=== PATIENT | male | born 1970 | race Caucasian/White ===

== ENCOUNTER 2016-07-01 14:17 | Emergency (ER) | payer OTHER ==
[~2016-07-01] VITALS: Ht 185.4 cm; Wt 76.4 kg
[~2016-07-01 14:17] MED LIST: ANTIBIOTIC; CEPHALEXIN500 M1 PO; DAZIDOX10 MG PO; NORCO 325 MG-51 TAB PO; PERCOCET 325 MG1 TAB PO; PREDNISONE10 MG PO; SEPTRA DS 8001 TAB PO
[2016-07-01 14:18] VITALS: TEMP 97.2
[2016-07-01 15:30] LABS: BASO # 0.1 (0.0-0.2); BASO % 0.7 % (0.0-2.0); EOS # 0.1 (0.0-0.7); GRAN # 4.4 (1.4-6.5); GRAN % 61.6 % (42.2-75.2); HEMATOCRIT 44.1 % (42.0-52.0); HEMOGLOBIN 15.1 g/dl (13.5-18.0); LYMPH # 2.2 (1.2-3.4); LYMPH % 30.3 % (20.0-51.0); MEAN CELL VOLUME 98 fl (80.0-100.0); MEAN CORPUSCULAR HEMOGLOBIN 34 pg (27.0-31.0); MEAN CORPUSCULAR HGB CONC 34 g/dl (33.0-37.0); MEAN PLATELET VOLUME 10.9 fl (7.4-10.4); MONO # 0.4 (0.1-0.6); MONO % 6.1 % (1.7-9.3); PLATELET COUNT 158 K/mm3 (130-400); RED BLOOD COUNT 4.49 M/mm3 (4.20-5.60); REDCELL DISTRIBUTION WIDTH-CV 12.7 % (11.5-14.5); WHITE BLOOD COUNT 7.2 K/mm3 (4.8-10.8)
[2016-07-01 15:52] LABS: ADJUSTED CALCIUM 9.1 mg/dL (8.4-10.2); ALANINE AMINOTRANSFERASE 37 U/L (21-72); ALBUMIN 4.8 gm/dL (3.5-5.0); ALKALINE PHOSPHATASE 97 U/L (50-136); ANION GAP 14 mmol/L (7-16); BILIRUBIN,TOTAL 0.9 mg/dL (0.0-1.0); BLOOD UREA NITROGEN 18 mg/dL (9-20); C-REACTIVE PROTEIN < 0.5 mg/dL (0.0-0.9); CALCIUM 9.7 mg/dL (8.4-10.2); CARBON DIOXIDE 19 mmol/L (22-30); CHLORIDE 108 mmol/L (98-107); CREATININE, serum 0.85 mg/dL (0.66-1.25); GLUCOSE 91 mg/dL (74-106); LIPASE 181 U/L (23-300); POTASSIUM 3.7 mmol/L (3.4-5.0); SODIUM 141 mmol/L (137-145); TOTAL PROTEIN 8.5 gm/dL (6.4-8.2)
[2016-07-01 16:05] LABS: TROPONIN-I < 0.012 ng/mL (0.000-0.034)
[2016-07-01 16:08] LABS: PH 5 (5-8); SQUAMOUS EPITHELIAL 0-2 /hpf; URINE APPEARANCE Clear; URINE BACTERIA None Seen /hpf; URINE BILIRUBIN Negative (NEGATIVE); URINE BLOOD Negative (NEGATIVE); URINE COLOR Yellow; URINE GLUCOSE Negative (NEGATIVE); URINE KETONE Negative (NEGATIVE); URINE RBC 0-2 /hpf; URINE UROBILINOGEN Negative (NEGATIVE); URINE WBC 0-2 /hpf
[2016-07-01 17:02] VITALS: BP 128/78; PULSE 98
== END 2016-07-01 17:03 | disposition home or self-care (01) ==
LOC: COL.ER 14:17
PROVIDERS: Emergency Medicine
DX: R10.11 Right upper quadrant pain (principal); R10.13 Epigastric pain; G89.29 Other chronic pain; R00.0 Tachycardia, unspecified
CPT/HCPCS: J1170; J2405; J7030; Q9967